=== PATIENT | female | born 1975 | race Caucasian/White ===

== ENCOUNTER 2018-02-17 16:43 | Emergency (ER) | payer SELFPAY ==
[~2018-02-17] VITALS: Ht 182.9 cm; Wt 78.6 kg
[~2018-02-17 16:43] MED LIST: ASPI-691 PO; BISA10SU54 PR; DIAZ5TAB PO; HYDR-3240 PO; IBUP-1223 PO; MAGN400O7 PO; METH750T87 PO; OXYC-307 PO; SENN-92 PO
[2018-02-17] MEDS ORDERED: SUCR1ORA11 PO (17:11)
[2018-02-17] MEDS ORDERED: PANT40TA3 PO (17:11)
[2018-02-17] MEDS ORDERED: GABA300C10 PO (17:11)
[2018-02-17] MEDS ORDERED: BUDE9TAB2 PO (17:11)
[2018-02-17] MEDS ORDERED: PANTOPRAZOLE 80 MG in SODIUM CHLORIDE 0.9% 50 ML IVPB ONE (17:15)
[2018-02-17] MEDS ORDERED: MAALOX/HYOSCYAMINE/LIDOCAINE 45 ML BTL PO ONE (17:30)
[2018-02-17] MEDS ORDERED: SODIUM CHLORIDE FLUSH 10ML SYR IVF ONE (17:30)
[2018-02-17] MEDS ORDERED: FAMOTIDINE 20 MG/2 ML IVP ONE (17:30)
[2018-02-17] MEDS ORDERED: ONDANSETRON 2MG/ML, 2ML IVPush ONE (17:30)
[2018-02-17 17:49] LABS: BASOPHILS % (AUTO) 0 % (0-1); EOSINOPHILS # (AUTO) 0.09 x10^3/uL (0-0.4); EOSINOPHILS % (AUTO) 1 % (1-7); LYMPHOCYTES # (AUTO) 1.05 x10^3/uL (1-3.4); LYMPHOCYTES % (AUTO) 13 % (22-44); MD NO; MEAN CORPUSCULAR HEMOGLOBIN 24.9 pg (27.0-34.8); MEAN CORPUSCULAR HGB CONC 31.9 g/dL (32.4-35.8); MONOCYTES # (AUTO) 0.34 x10^3/uL (0.2-0.8); MONOCYTES % (AUTO) 4 % (2-9); NEUTROPHILS # (AUTO) 6.54 x10^3/uL (1.8-6.8); NEUTROPHILS % (AUTO) 82 % (42-75); PLATELET COUNT 514 x10^3/uL (130-400); RED BLOOD COUNT 3.22 x10^6/uL (3.82-5.3); RED CELL DISTRIBUTION WIDTH 18.4 % (9.6-15.2)
[2018-02-17 18:02] LABS: ALANINE AMINOTRANSFERASE 11 U/L (12-78); ALBUMIN 2.9 g/dL (3.4-5.0); ANION GAP 6 mmol/L (5-15); CALCIUM 8.9 mg/dL (8.5-10.1); CHLORIDE 107 mmol/L (98-107)
[2018-02-17 18:04] LABS: ALKALINE PHOSPHATASE 62 U/L (45-117); BILIRUBIN,TOTAL 0.3 mg/dL (0.2-1.0); CREATININE 0.77 mg/dL (0.55-1.02); TOTAL PROTEIN 6.8 g/dL (6.4-8.2)
[2018-02-17] MEDS ORDERED: MAALOX/HYOSCYAMINE/LIDOCAINE 45 ML BTL ONE (18:05)
[2018-02-17] MEDS ORDERED: ONDANSETRON 2MG/ML, 2ML ONE (18:05)
[2018-02-17] MEDS ORDERED: MORPHINE SULFATE 4 MG/ML, 1ML ONE ×2 (19:07→19:24)
[2018-02-17] MEDS: MORPHINE SULFATE 4 MG/ML, 1ML IVPush PRN ×2 (19:09→19:26)
[2018-02-17] MEDS ORDERED: FAMOTIDINE 20 MG/2 ML ONE (19:24)
[2018-02-17 19:30] VITALS: BP 123/78
== END 2018-02-17 20:20 | disposition home or self-care (01) ==
LOC: ED 20:14
DX: K29.00 Acute gastritis without bleeding (principal); G89.29 Other chronic pain; F17.210 Nicotine dependence, cigarettes, uncomplicated; G43.909 Migraine, unspecified, not intractable, without status migrainosus; Z87.19 Personal history of other diseases of the digestive system; Z79.899 Other long term (current) drug therapy
CPT/HCPCS: 36415; 76700; 80053; 83690; 85025; 96374; 96375; 99284; C9113; J2405; J3490